=== PATIENT | male | born 1990 | race Caucasian/White ===

== ENCOUNTER → 2016-05-15 | Outpatient (CLI) | payer BC ==
--- NOTE | 2016-05-15 19:56 | RADIOLOGY REPORT PS360 ---
HAND-RT 3 VIEWS ORDERING PHYSICIAN : Maurizio Bergeron PATIENT AGE: 25 years GENDER: Male INDICATION: HAND INJURY' Right hand injury and pain. TECHNIQUE: 3 views right hand COMPARISON: FINDINGS No acute fracture nor dislocation evident. . Joint spaces are well-maintained. Bones well mineralized. Deformity at the fifth metacarpal from old healed fracture here. Small benign bone island at lunate and distal radius but benign features IMPRESSION: No acute fracture. Likely old healed fracture at the fifth metacarpal.
== END ==
LOC: RAD 13:35
DX: S69.90XA Unspecified injury of unspecified wrist, hand and finger(s), initial encounter (principal)